=== PATIENT | male | born 1995 | race Caucasian/White ===

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

== ENCOUNTER 2017-01-25 19:48 | Emergency (ER) | payer OTHER ==
[~2017-01-25] VITALS: Ht 177.8 cm; Wt 108.9 kg
[2017-01-25 19:55] VITALS: BP 144/91
--- NOTE | 2017-01-25 20:00 | NUR ---
PATIENT LEFT WITHOUT BEING SEEN BY DR. BEDOYA. NO FURTHER CARE PROVIDED FOR PATIENT.
--- NOTE | 2017-01-25 23:13 | NUR ---
Maru albarran in [facility] - 01/25/17 at 2333 by YAZMIN PATIENT LEFT WITHOUT BEING SEEN BY DR. BEDOYA. NO FURTHER CARE PROVIDED FOR PATIENT.
== END 2017-01-25 20:00 | disposition left against medical advice (07) ==
LOC: MED 19:48
DX: R42 Dizziness and giddiness (principal); Z53.21 Procedure and treatment not carried out due to patient leaving prior to being seen by health care provider